=== PATIENT | male | born 1995 | race Two or more races ===

== ENCOUNTER 2025-01-26 23:13 | Emergency (ER) | payer BC ==
[~2025-01-26] VITALS: Ht 185.4 cm; Wt 113.4 kg
[2025-01-26] MEDS ORDERED: ACET-3102 PO (23:48)
[2025-01-26] MEDS ORDERED: ONDA4TAB5 PO (23:48)
[2025-01-26] MEDS ORDERED: IBUP-1955 PO (23:48)
[2025-01-26] MEDS ORDERED: ONDANSETRON ODT 4 MG TAB.RAPDIS ONE (23:50)
[2025-01-26] MEDS ORDERED: ACETAMINOPHEN 500 MG TABLET ONE (23:51)
[2025-01-27] MEDS: NAPROXEN 500 MG TABLET PO ONE (00:11)
[2025-01-27] MEDS: ONDANSETRON ODT 4 MG TAB.RAPDIS SL ONE (00:11)
[2025-01-27 01:12] VITALS: BP 120/82; O2SAT 98
== END 2025-01-27 00:56 | disposition home or self-care (01) ==
LOC: ER 23:29
DX: S06.0X0A Concussion without loss of consciousness, initial encounter (principal); S13.4XXA Sprain of ligaments of cervical spine, initial encounter; R51.9 Headache, unspecified; R11.2 Nausea with vomiting, unspecified; M54.9 Dorsalgia, unspecified; V43.52XA Car driver injured in collision with other type car in traffic accident, initial encounter; Y93.89 Activity, other specified; Y92.488 Other paved roadways as the place of occurrence of the external cause; Y99.8 Other external cause status
CPT/HCPCS: 70450; 72072; 72110; 72125; A4606; A4663; A9150; Q0162